=== PATIENT | male | born 1940 | race Caucasian/White ===

== ENCOUNTER 2018-02-04 13:00 | Inpatient (IN) ==
[2018-02-06] MEDS ORDERED: Mupirocin 2% Nasal Oint Topical Syringe EACH NARE SCH (06:15)
[2018-02-06] MEDS ORDERED: Chlorhexidine Gluconate 2% 1 Pack (2 Cloths) TOPICAL SCH (06:15)
[2018-02-06] MEDS ORDERED: Aspirin 325 MG Tablet PO SCH (06:15)
[2018-02-06] MEDS ORDERED: Heparin 10,000 UNITS/10 ML Vial (for IV use) ONE (06:26)
[2018-02-06] MEDS ORDERED: Protamine Sulfate Inj 50 MG/5 ML Vial ONE (06:26)
[2018-02-06] MEDS ORDERED: ceFAZolin 2 GM Premix Inj 2 GM/100 ML BAG IV.SIG SCH (07:00)
--- NOTE | 2018-02-06 08:22 | P.HPCA ---
History of Present Illness Service: Cardiology Primary Care Physician: Yemi Acosta MD Chief Complaint: Shortness of breath History of Present Illness: Is a very nice 68-year-old male with prior history of hypertension, hyperlipidemia, and aortic stenosis who presented to his primary care physician with symptoms of worsening dyspnea on exertion. Transthoracic echocardiogram confirmed severely reduced aortic valve area. Preoperative workup showed no significant underlying coronary disease. Patient was evaluated by cardiothoracic surgery and felt to be intermediate risk for traditional surgical valve. After discussion, the patient decided to proceed forward with consideration of transcatheter aortic valve replacement. Patient is here today for elective surgery. - Diagnosis (1) Severe aortic stenosis (2) Diastolic CHF Inpatient Certification: I certify that the inpatient services were ordered in accordance with Medicare regulations governing the order. This includes certification that hospital inpatient services are reasonable and necessary and in the case of services not specified as inpatient-only under 42 CFR 419.22(n), that they are appropriately provided as inpatient services in accordance to with the 2-midnight benchmark under 43 CFR 412.3(e) Review of Systems All other systems reviewed negative except as stated in HPI [facility] - Medical History Medical History: Medical History (Last Updated 02/06/18 @ 08:16 by Luis Alberto Barnes MD) Anemia Aortic stenosis, severe Carpal tunnel syndrome DVT (deep venous thrombosis) Depression Diabetes mellitus Diastolic CHF Hyperlipidemia Thrombocytopenia - Surgical History Surgical History: Surgical History (Last Updated 02/06/18 @ 08:16 by Luis Alberto Barnes MD) H/O shoulder surgery Joint replaced Post-splenectomy S/P IVC filter Medications and Allergies Active Medications: Active Medications Aspirin (Aspirin) 325 mg PO BIOSTATISTICS TEACHER REPLACED BY [facility] Stop: 02/09/18 06:10 Last Admin: 02/06/18 06:40 Dose: 325 mg Chlorhexidine Gluconate (Chlorhexidine 2% Cloth) 3 pack TOPICAL BIOSTATISTICS TEACHER REPLACED BY [facility] Stop: 02/09/18 06:10 Cefazolin/Sodium Chloride (Ancef 2 Gm Premix Inj) 2 gm in 100 mls @ 200 mls/hr IV.SIG ONCE REPLACED BY [facility] Stop: 02/06/18 18:00 Sodium Chloride (Ns Inj) 1,000 mls @ 125 mls/hr IV.CONT .Q8H REPLACED BY [facility] Mupirocin (Bactroban 2% Nasal Oint) 1 applicatio EACH NARE BIOSTATISTICS TEACHER REPLACED BY [facility] Stop: 02/09/18 06:10 Povidone Iodine (Betadine 5% Antisepsis Kit) 1 applicatio TOPICAL BIOSTATISTICS TEACHER [facility] Stop: 02/09/18 06:10 Allergies Allergy/AdvReac Type Severity Reaction Status Date / Time diazepam AdvReac Severe Confusion Unverified 01/21/17 20:45 haloperidol AdvReac Severe Confusion Unverified 01/21/17 20:45 lorazepam AdvReac Severe Confusion Unverified 01/21/17 20:45 *MDRO Multi-Drug Resistant AdvReac Unknown Uncoded 04/08/16 09:14 Organism Home Medications Medication Instructions Recorded Confirmed Type alprazolam 0.25 mg PO TID 02/06/18 02/06/18 History atorvastatin 10 mg PO DAILY 02/06/18 02/06/18 History cyanocobalamin (vitamin B-12) 1,000 mcg SUB-Q [id number] 02/06/18 02/06/18 History diphenhydramine HCl 50 mg PO HS 02/06/18 02/06/18 History enoxaparin [Lovenox] 100 mg SUB-Q DAILY 02/06/18 02/06/18 History ferrous sulfate [iron] 325 mg PO BID 02/06/18 02/06/18 History folic acid 1 mg PO DAILY 02/06/18 02/06/18 History furosemide 40 mg PO DAILY 02/06/18 02/06/18 History glipizide 5 mg PO BID 02/06/18 02/06/18 History hydrocodone-acetaminophen [Hooker] 1 tab PO Q4-6H 02/06/18 02/06/18 History oxybutynin chloride 10 mg PO DAILY 02/06/18 02/06/18 History oxycodone 10 mg PO Q12H 02/06/18 02/06/18 History pregabalin [Lyrica] 75 mg PO TID 02/06/18 02/06/18 History warfarin 7.5 mg PO DAILY 02/06/18 02/06/18 History Exam Vital signs: Vital Signs 02/06/18 06:39 Temperature 99.3 F Pulse Rate 69 Respiratory Rate 18 Blood Pressure 151/77 H Pulse Oximetry 93 L Intake & Output 02/05/18 02/06/18 02/06/18 18:59 06:59 18:59 Weight 105 kg Other: Weight On Admission 105 kg - Constitutional no acute distress - Routine HEENT Exam Head: Present: normocephalic Eye: Present: EOMI, PERRL ENT: Present: mucous membranes moist - Routine Neck Exam Absent: JVD - Routine Cardiovascular Exam Present: RRR, S1, S2, murmur - Routine Abdominal Exam Present: soft, normoactive bowel sounds - Routine Extremities Exam Present: cyanosis. Absent: edema - Routine Neurological Exam Present: oriented X3. Absent: sensory deficit, motor deficit Results Intake and Output 02/05/18 02/06/18 02/06/18 22:59 06:59 14:59 Other: Weight 105 kg Weight On Admission 105 kg EKG interpretations - Dysrhythmias Sinus rhythms and dysrhythmias: sinus rhythm Caprini VTE Risk Assessment Caprini VTE Risk Assessment: No/Low Risk (score <= 1) Caprini Risk Assessment Model: Point Value = 1 Point Value = 2 Point Value = 3 Point Value = 5 Age 41-60 Minor surgery BMI > 25 kg/m2 Swollen legs Varicose veins or History of unexplained or recurrent spontaneous Oral contraceptives or hormone replacement Sepsis (< 1 month) Serious lung disease, including pneumonia (< 1 month) Abnormal pulmonary function Acute myocardial infarction Congestive heart failure (< 1 month) History of inflammatory bowel disease Medical patient at bed rest Age 61-74 Arthroscopic surgery Major open surgery (> 45 min) Laparoscopic surgery (> 45 min) Malignancy Confined to bed (> 72 hours) Immobilizing plaster cast Central venous access Age >= 75 History of VTE Family history of VTE Factor V Leiden Prothrombin [id number] Lupus anticoagulant Anticardiolipin antibodies Elevated serum homocysteine Heparin-induced thrombocytopenia Other congenital or acquired thrombophilia Stroke (< 1 month) Elective arthroplasty Hip, pelvis, or leg fracture Acute spinal cord injury (< 1 month) Prophylaxis Regimen: Total Risk Factor Score Risk Level Prophylaxis Regimen 0-1 Low Early ambulation 2 Moderate Order ONE of the following: *Sequential Compression Device (SCD) *Heparin 5000 units SQ BID 3-4 Higher Order ONE of the following medications: *Heparin 5000 units SQ TID *Enoxaparin/Lovenox 40 mg SQ daily (WT < 150 kg, CrCl > 30 mL/min) *Enoxaparin/Lovenox 30 mg SQ daily (WT < 150 kg, CrCl > 10-29 mL/min) *Enoxaparin/Lovenox 30 mg SQ BID (WT < 150 kg, CrCl > 30 mL/min) AND/OR *Sequential Compression Device (SCD) 5 or more Highest Order ONE of the following medications: *Heparin 5000 units SQ TID (Preferred with Epidurals) *Enoxaparin/Lovenox 40 mg SQ daily (WT < 150 kg, CrCl > 30 mL/min) *Enoxaparin/Lovenox 30 mg SQ daily (WT < 150 kg, CrCl > 10-29 mL/min) *Enoxaparin/Lovenox 30 mg SQ BID (WT < 150 kg, CrCl > 30 mL/min) AND *Sequential Compression Device (SCD) Assessment and Plan - Assessment (1) Severe aortic stenosis Code(s): I35.0 - Nonrheumatic aortic (valve) stenosis Status: Acute (2) Diastolic CHF Code(s): I50.30 - Unspecified diastolic (congestive) heart failure Status: Acute - Plan Preoperative evaluation STS score 3.6% [place] Heart [employer] functional class III BMI 30.7 Frailty score 2 out of 4 Electrocardiogram normal sinus rhythm left ventricular hypertrophy with extensive STT wave changes secondary to hypertrophy. Pulmonary function test performed on January 07, 2018 shows an FEV1 of 2.14 consistent with mild restrictive disease Echocardiogram from November 05, 2017 shows a peak jet velocity of 6.0 m/s, mean gradient of 86 mmHg, calculated aortic valve area 0.57 cm, ejection fraction 60 -65%, mild to moderate aortic insufficiency, mild mitral regurgitation, mild tricuspid regurgitation Cardiac catheterization November 06, 2017 shows no significant coronary disease Computed tomography analysis on December 25, 2017 shows a short annulus diameter of 26.5 mm in a long anus diameter 33.3 mm with a calculated aortic annular area of 709.3 mm. The sinus of Valsalva diameter is 38.8 mm, sinotubular junction diameter 34.4 mm, left coronary height 15.7 mm, right coronary height 23.0 mm. Iliac arteries are widely patent with minimal luminal diameter 9.5 mm on the right and 9.2 mm on the left This is 77-year-old gentleman with history of deep vein thrombosis, diabetes, hyperlipidemia, hypertension, and progressive shortness of breath with symptomatic severe aortic valve stenosis and [place] Heart [employer] functional class III symptoms. Patient is felt to be intermediate risk for surgical aortic valve replacement. We will plan for transcatheter valve replacement with an Osorio S3 29 mm bioprosthetic valve. Respective alternatives has been discussed with the patient patient is agreeable to proceed.
[2018-02-06] MEDS ORDERED: Lidocaine 2% 100 MG/5 ML Syringe IV.PUSH ONE (08:50)
[2018-02-06] MEDS ORDERED: Neostigmine Inj 5 MG/5 ML Syringe IV.PUSH ONE (08:50)
[2018-02-06] MEDS ORDERED: Lidocaine PF 1% Inj 5 ML Syringe INFILTRATN ONE (08:50)
[2018-02-06] MEDS ORDERED: Phenylephrine/NS 1000 MCG/10ML Syringe IV.PUSH ONE (08:50)
[2018-02-06] MEDS ORDERED: Metoprolol Inj 5 MG/5 ML Vial IV.PUSH ONE (08:50)
[2018-02-06] MEDS ORDERED: Nitroglycerin Drip Premix 50 MG/250 ML BOTTLE IV.SIG ONE (08:50)
[2018-02-06] MEDS ORDERED: Glycopyrrolate Inj 1 MG/5 ML Syringe IV.PUSH ONE (08:50)
[2018-02-06] MEDS ORDERED: Iohexol 350 MG/ML 50 ML Vial (for Rad Diag) IVCONTRAST ONE (09:48)
[2018-02-06] MEDS ORDERED: Atropine Inj 1 MG/ML Vial IV.PUSH PRN (09:54)
[2018-02-06] MEDS ORDERED: Benzocaine/Menthol 15 MG/3.6 MG SF Lozenge BUCCAL PRN (09:54)
--- NOTE | 2018-02-06 09:54 | P.OP ---
- Preoperative Diagnosis (1) Severe aortic stenosis (2) Diastolic CHF - Postoperative Diagnosis (1) Severe aortic stenosis (2) Diastolic CHF Date of procedure: 02/06/18 Procedure: Transcatheter aortic valve replacement with a 29 Shyam 3 tissue valve Balloon aortic valvuloplasty with a 24 x 4 Osorio balloon Percutaneous bilateral femoral artery access with Perclose closure on the right. Percutaneous left femoral venous access Aortography Fluoroscopy Implants: 29 Shyam 3 tissue valve Anesthesia: GETA Surgeon: Alyssa Bowen MD co-surgeon - Dr. Barnes Adolescent Coordinator: Livan Bucio Adolescent Coordinator: Dr. Mil Odom Operation and Findings: The risks, benefits, complications, treatment options, and expected outcomes were discussed with the patient. The possibilities of reaction to medication, pulmonary aspiration, perforation of viscus, bleeding, recurrent infection, the need for additional procedures, failure to diagnose a condition, and creating a complication requiring transfusion or operation were discussed with the patient. The patient concurred with the proposed plan, giving informed consent. The site of surgery properly noted/marked. The patient was taken to hybrid operating room, identified as [place] and the procedure verified as Transcatheter Aortic Valve Replacement. A Time Out was held and the above information confirmed. Standard monitoring lines and Donahue catheter were placed. General anesthesia was induced. The patient was prepped and draped in a sterile fashion. Initially, left femoral arterial and venous access was acquired using a Seldinger percutaneous technique. The details of this procedure were dictated under separate note by cardiology. Once a pigtail was positioned in the aortic annulus and a temporary transvenous pacemaker wire was placed in the right ventricular apex and tested, the right femoral artery was accessed using a needle followed by a guidewire under fluoroscopic guidance. The patient was heparinized and 2 Perclose devices deployed for later closure. Serial dilators were used to dilate the right femoral artery to 16 Cambodian caliber. The Osorio sheath was then inserted up to the distal abdominal aorta. Arch aortography was performed to define the implant view. A balloon aortic valvuloplasty was then performed using a 24 x 4 balloon with the patient being paced at 180 beats per minute. A 29 Osorio Shyam 3 transcatheter aortic valve was then positioned in the annulus and deployed with the patient being paced at 180 beats per minute. Following deployment, the valve apparatus was withdrawn and arch aortography and LASHONDA were performed to assess the valve. The valve had no significant perivalvular leaks. Gradients were then measured and the sheath was removed. Perclose sutures were secured with good hemostasis. Protamine was administered. Sterile dressings were placed. At the end of the operation, all sponge, instruments, and needle counts were correct. The patient was transferred to the CVICU in stable condition. Findings: No PVL following deployment. The patient fibrillated with the wire in the LV and required defibrillation and temporary pacing. Implants: 29 S3 tissue valve Complications: none Disposition: to CVICU in stable condition
--- NOTE | 2018-02-06 09:55 | ECG ---
Date Performed: 02/06/2018 Time Performed: 06:17:36 PTAGE: 77 years EKG: Sinus rhythm . LVH with secondary repolarization abnormality Extensive ST-T changes are probably due to ventricula r hypertrophy Since the previous tracing, no significant change noted Abnormal ECG PREVIOUS TRACING : 12/25/2017 08.16 DOCTOR: Shahriar Villarreal Interpretating Date/Time 02/06/2018 09:51:33
[2018-02-06] MEDS ORDERED: Sod Chloride 0.9% Inj 1,000 ML IV.CONT SCH (10:00)
[2018-02-06] MEDS ORDERED: fentaNYL Citrate Inj 100 MCG/2 ML Ampul ONE (10:35)
[2018-02-06] MEDS: Clevidipine Inj 25 MG/50 ML VIAL IV.CONT PRN ×3 (10:35→20:09)
[2018-02-06] MEDS: Morphine Sulfate Inj 2 MG/ML Vial IV.PUSH PRN ×2 (10:46→22:33)
[2018-02-06] MEDS: Acetaminophen 325 MG Tablet PO PRN ×2 (11:33→18:28)
--- NOTE | 2018-02-06 11:49 | P.PCN ---
Date of procedure: 02/06/18 Pre-op diagnosis: severe aortic stenosis Post-op diagnosis: same Procedure: Procedure: Transesophageal Echocardiography Diagnosis: Severe aortic stenosis Indications: Perioperative planning for transcatheter aortic valve replacement Consent: Obtained Anesthesia: GETA Description of the Procedure: The patient was sedated and mechanically ventilated. The echo probe was inserted easily and without resistance. At the conclusion of the procedure, the echo probe was removed. Please see detailed echocardiogram report for formal findings. Preliminary Findings (not confirmed): Pre-procedure: 1) LV hypertrophy with preserved EF 2) normal right ventricular size and function 3) severe aortic stenosis 4) moderate to severe aortic regurgitation 5) trace to mild mitral regurgitation 6) no pericardial effusion 7) no evidence of intra-atrial shunting by color flow Doppler Post-procedure: 1) s/p successful placement of transcatheter aortic valve 2) no evidence of bioprosthetic valve stenosis 3) no perivalvular leak 4) no changes in mitral regurgitation 5) no pericardial effusion The patient tolerated the procedure well with no hemodynamic instability. There were no immediate complications noted. There was minimal EBL. I personally performed the procedure.
[2018-02-06] MEDS ORDERED: Sodium Phosphate Inj 30 MMOL in Sodium Chlor 0.9% Inj 250 ML IV.SIG PRN (12:03)
[2018-02-06] MEDS ORDERED: Potassium Phosphate 500 MG Soluble Tablet PO PRN ×2 (12:03)
[2018-02-06] MEDS ORDERED: Potassium Chlor 40 mEq Premix 40 MEQ/100 ML PIGGYBACK IV.SIG PRN ×2 (12:03)
[2018-02-06] MEDS ORDERED: Magnesium Sulfate Inj 4 GM in Sodium Chlor 0.9% Inj 92 ML IV.SIG PRN (12:03)
[2018-02-06] MEDS ORDERED: Magnesium Oxide 400 MG Tablet PO PRN (12:03)
[2018-02-06] MEDS ORDERED: Potassium Phosphate Inj 30 MMOL in Sodium Chlor 0.9% Inj 250 ML IV.SIG PRN (12:03)
[2018-02-06] MEDS ORDERED: Magnesium Sulfate Inj 2 GM in Sodium Chlor 0.9% Inj 96 ML IV.SIG PRN (12:03)
[2018-02-06] MEDS ORDERED: Potassium Chlor 20 mEq Premix 20 MEQ/100 ML PIGGYBACK IV.SIG PRN ×2 (12:03)
[2018-02-06] MEDS ORDERED: Potassium Chloride 25 MEQ Effervescent Tablet PO PRN (12:03)
--- NOTE | 2018-02-06 12:03 | P.CONCC ---
History of Present Illness Service: Critical Care Medicine Consult date: 02/06/18 Requesting Physician: Luis Alberto Barnes Reason for Consult: perioperative management of medical comorbidities Primary Care Provider: Yemi Acosta MD Chief Complaint: Shortness of breath History of Present Illness: 77yM with severe symptomatic aortic stenosis presents for transcatheter aortic valve replacement. His procedure was complicated by 1 episode of VF which lasted for approximately 10 seconds and required defibrillation. this happened during manipulation of the LV guidewire and appeared to be related to electrical R-on-T phenomenon. He also required intermittent pacing for bradycardia. The remainder of the procedure was uncomplicated. He arrives to the CVICU in stable condition, arousing from anesthesia. due to his somnolence, full ROS is unobtainable. limited ROS negative for chest pain, SOB, headache, n/ v, sore throat. family history reviewed and non-contributory to his acute illness. [facility] - Medical History Medical History: Medical History (Last Updated 02/06/18 @ 08:16 by Luis Alberto Barnes MD) Carpal tunnel syndrome DVT (deep venous thrombosis) Depression Diabetes mellitus Diastolic CHF Hyperlipidemia Thrombocytopenia - Surgical History Surgical History: Surgical History (Last Updated 02/06/18 @ 08:16 by Luis Alberto Barnes MD) H/O shoulder surgery Joint replaced Post-splenectomy S/P IVC filter Medications and Allergies Active Medications: Active Medications Acetaminophen (Tylenol) 650 mg PO Q4H PRN PRN Reason: PAIN SCALE 1 TO 2 Stop: 02/07/18 09:53 Last Admin: 02/06/18 11:33 Dose: 650 mg Aspirin (Aspirin) 325 mg PO [facility] [employer] [facility] Stop: 02/09/18 06:10 Last Admin: 02/06/18 06:40 Dose: 325 mg Aspirin (Aspirin Chew) 81 mg PO DAILY [facility] Atropine Sulfate (Atropine Inj) 0.5 mg IV.PUSH UNSCH PRN PRN Reason: VAGAL REPONSE Stop: 02/07/18 09:53 Benzocaine/Menthol (Cepacol Max Strength) 1 lozenge BUCCAL Q3H PRN PRN Reason: SORE THROAT Stop: 02/07/18 09:53 Chlorhexidine Gluconate (Chlorhexidine 2% Cloth) 3 pack TOPICAL PHOTOGRAPHER [facility] Stop: 02/09/18 06:10 Clopidogrel Bisulfate (Plavix) 75 mg PO DAILY [facility] Ferrous Sulfate (Ferosul) 325 mg PO [facility]ILY [facility] Furosemide (Lasix) 20 mg PO DAILY [facility] Cefazolin/Sodium Chloride (Ancef 2 Gm Premix Inj) 2 gm in 100 mls @ 200 mls/hr IV.SIG ONCE [facility] Stop: 02/06/18 18:00 Last Infusion: 02/06/18 11:41 Dose: Infused Sodium Chloride (Ns Inj) 1,000 mls @ 125 mls/hr IV.CONT .Q8H [facility] Sodium Chloride (Ns Inj) 1,000 mls @ 125 mls/hr IV.CONT .Q8H [facility] Stop: 02/06/18 13:59 Last Admin: 02/06/18 11:00 Dose: 125 mls/hr Morphine Sulfate (Morphine Inj) 2 mg IV.PUSH Q30M PRN PRN Reason: BREAKTHROUGH PAIN Last Admin: 02/06/18 10:46 Dose: 2 mg Mupirocin (Bactroban 2% Nasal Oint) 1 applicatio EACH NARE PHOTOGRAPHER [employer] [facility] Stop: 02/09/18 06:10 Ondansetron HCl (Zofran Inj) 4 mg IV.PUSH ONCE PRN PRN Reason: NAUSEA OR VOMITING Oxycodone/Acetaminophen (Percocet 5/325 Mg) 1 tab PO Q6H PRN PRN Reason: PAIN SCALE 3 TO 5 Povidone Iodine (Betadine 5% Antisepsis Kit) 1 applicatio TOPICAL PHOTOGRAPHER [facility] Stop: 02/09/18 06:10 Allergies Allergy/AdvReac Type Severity Reaction Status Date / Time diazepam AdvReac Severe Confusion Unverified 01/21/17 20:45 haloperidol AdvReac Severe Confusion Unverified 01/21/17 20:45 lorazepam AdvReac Severe Confusion Unverified 01/21/17 20:45 *MDRO Multi-Drug Resistant AdvReac Unknown Uncoded 04/08/16 09:14 Organism Home Medications Medication Instructions Recorded Confirmed Type alprazolam 0.25 mg PO TID 02/06/18 02/06/18 History atorvastatin 10 mg PO DAILY 02/06/18 02/06/18 History cyanocobalamin (vitamin B-12) 1,000 mcg SUB-Q [id number] 02/06/18 02/06/18 History diphenhydramine HCl 50 mg PO HS 02/06/18 02/06/18 History enoxaparin [Lovenox] 100 mg SUB-Q DAILY 02/06/18 02/06/18 History ferrous sulfate [iron] 325 mg PO BID 02/06/18 02/06/18 History folic acid 1 mg PO DAILY 02/06/18 02/06/18 History furosemide 40 mg PO DAILY 02/06/18 02/06/18 History glipizide 5 mg PO BID 02/06/18 02/06/18 History hydrocodone-acetaminophen [Hope] 1 tab PO Q4-6H 02/06/18 02/06/18 History oxybutynin chloride 10 mg PO DAILY 02/06/18 02/06/18 History oxycodone 10 mg PO Q12H 02/06/18 02/06/18 History pregabalin [Lyrica] 75 mg PO TID 02/06/18 02/06/18 History warfarin 7.5 mg PO DAILY 02/06/18 02/06/18 History Physical Exam Vital signs: Vital Signs 02/06/18 06:39 02/06/18 10:20 Temperature 37.4 C 36.4 C Pulse Rate 69 81 Respiratory Rate 18 20 Blood Pressure 151/77 H 179/99 H Pulse Oximetry 93 L 99 Intake & Output 02/05/18 02/06/18 02/06/18 18:59 06:59 18:59 Intake Total 1200 / 1200 Output Total 625 / 625 Balance 575 / 575 Weight 105 kg Intake: IV 100 / 100 Ancef 2 GM Premix Inj 2 gm In 100 / 100 100 ml @ 200 mls/hr IV.SIG ONCE [facility] Rx#:[id number] Anesthesia Amount 1100 / 1100 Output: Estimated Blood Loss 25 / 25 Urine Amount (Catheter) 600 / 600 Indwelling Temp Sensing 600 / 600 Catheter Other: Date of Last Bowel Movement 02/05/18 Weight On Admission 105 kg Narrative: GENERAL: Frail elderly male lying in bed, arousing from anesthesia HEENT: Normocephalic. Atraumatic. Pupils equal, round, reactive, conjugate. Mucous membranes are moist NECK: Trachea is midline. There is no JVD. right IJ introducer sheath with transvenous pacer in place, site is clean and dry, dressing intact. CHEST: unlabored. equal chest rise. nc o2. CARDIOVASCULAR: normal rate, regular rhythm. Transvenous pacer is set VVI at a backup rate of 50. Intermittently paced. ABDOMEN: Soft, nontender, nondistended. No guarding. MUSCULOSKELETAL: Pulses 2+. No peripheral edema. bilateral groin sites are clean and dry, no evidence of hematoma, dressing intact. distal LE pulses are Dopplerable. NEUROLOGICAL: RASS -2. Arousing from anesthesia. follows commands. moves all extremities. no focal deficits. - Urinary Catheter Management Indwelling Temp Sensing Catheter Cath placed during this visit: yes Reason for continuing: Hourly intake/output Insertion date: 02/06/18 Insertion time: 08:08 Assessment and Plan - Assessment and Plan Plan: Assessment: 77yM POD 0 s/p TAVR via groin access. EP consult. continue with transvenous pacer. close monitoring in an ICU setting. s/p TAVR 02/06 via groin access - anticoagulation per Dr. 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 - EP consult Congestive Heart Failure with preserved EF - mivf today. may require gentle diuresis in the coming days. Hyperlipidemia - restart home statin Diabetes - SSI Thrombocytopenia - stable. - trend on daily cbc advance diet after flat time SCDs Critical care will continue to follow while patient remains in the CVICU.
[2018-02-06 12:11] LABS: Baso # (Auto) 0.1 th/mm3 (0.0-0.2); Baso % (Auto) 1.3 % (0.0-2.0); Eos # (Auto) 0.2 th/mm3 (0.0-0.4); Eos % (Auto) 2.1 % (0.0-4.0); Hematocrit 30.4 % (39.0-51.0); Hemoglobin 10.1 gm/dL (13.0-17.0); Lymph % (Auto) 9.2 % (9.0-44.0); Mean Corpuscular HGB Conc 33.3 % (32.0-36.0); Mean Corpuscular Hemoglobin 32.8 pg (27.0-34.0); Mean Corpuscular Volume 98.6 fL (80.0-100.0); Mean Platelet Volume 7.7 fL (7.0-11.0); Mono # (Auto) 0.5 th/mm3 (0.0-0.9); Mono % (Auto) 4.9 % (0.0-8.0); Neut % (Auto) 82.5 % (16.0-70.0); Platelet Count 298 th/mm3 (150-450); Red Blood Count 3.09 mil/mm3 (4.50-5.90); Red Cell Distribution Width 16.1 % (11.6-17.2); White Blood Count 10.8 th/mm3 (4.0-11.0)
[2018-02-06 12:27] LABS: Activated Partial Thrombo Time 34.3 sec (24.3-30.1); INR 1.1 Ratio
[2018-02-06 12:30] LABS: Calcium 8.2 mg/dL (8.5-10.1); Carbon Dioxide 26.2 meq/L (21.0-32.0)
--- NOTE | 2018-02-06 13:30 | MA ---
cc: Luis Alberto Barnes MD DATE: 02/06/2018 PROCEDURE: Transcatheter aortic valve replacement. MOVIE EDITOR; Luis Alberto Barnes MD, [facility]. SECONDARY MANGLE OPERATOR GARMENTS: Dr. Russ Odom. PRIMARY CARDIOTHORACIC SURGEON: Dr. Alyssa Bowen. SECONDARY CARDIOTHORACIC SURGEON: Dr. Livan Bucio. PROCEDURES PERFORMED: 1. Fluoroscopy with interpretation. 2. Ascending aortography. 3. Transesophageal echocardiography. 4. Transvenous temporary pacemaker placement. 5. Direct current cardioversion with defibrillation. 6. Aortic valvuloplasty. 7. Transcatheter valve replacement with bioprosthetic valve, Osorio LISANDRO S3 29 mm. 8. Left heart catheterization. METHOD: Risks, benefits, and alternatives discussed with the patient. The patient understood and consented to the procedure. The patient was brought to the catheterization lab and positioned on the table. Bilateral groins were prepped and draped in sterile fashion. The left groin was anesthetized and a 6-Omani sheath was placed in the left femoral artery and a 5-Omani sheath in the left femoral vein. Next, the right common femoral artery was cannulated and an 8-Omani 11 cm sheath was placed without difficulty. TRANSESOPHAGEAL ECHOCARDIOGRAPHY: Please see separate detailed report. TEMPORARY TRANSVENOUS PACEMAKER PLACEMENT: A right internal jugular venous access was obtained and a 5-Omani balloon tipped temporary transvenous pacer was advanced to the right ventricular apex. Appropriate capture was confirmed. ASCENDING AORTOGRAPHY: Ascending aortography was performed with a 5-Omani pigtail catheter. Angiography visualized the leaflets and parallel well. No significant aortic root dilation. LEFT HEART CATHETERIZATION: A 5-Omani AL-1 catheter was advanced to ascending aorta. A 0.035-inch straight tip Amplatz wire was then navigated across the aortic valve with some difficulty. AL-1 catheter was advanced into the left ventricle. An exchange length J-wire was advanced to the left ventricular apex followed by a 5-Omani pigtail catheter to the apex; wire was removed. A [employer] Confida wire was advanced into the left ventricular apex and the pigtail catheter removed. At this point, due to some of the irritation secondary to the wire the patient developed ventricular fibrillation requiring a defibrillation back to sinus rhythm. AORTIC VALVULOPLASTY: A 23 mm aortic valvuloplasty balloon was advanced up and over the Confida wire and across the aortic valve. With a rapid pacing, the balloon was deployed. Repeat angiography showed severe aortic insufficiency. The patient tolerated fairly well hemodynamically. Aortic valvuloplasty was removed. The wire left in place. TRANSCATHETER AORTIC VALVE REPLACEMENT: A 29 mm Osorio bioprosthetic valve was then loaded on the wire. After the dilator removed the device was then advanced up and over the arch. The balloon pulled back into the stent and we navigated the arch carefully and placed the bioprosthetic valve across the alturas valve. Under direct visualization, angiography and appropriate placement was confirmed with rapid pacing. The device was then carefully deployed. Repeat transesophageal echocardiogram confirmed good placement without any aortic insufficiency. There is no evidence for any coronary obstruction or pericardial effusion. No significant mitral regurgitation. The 2 Perclose devices were successfully deployed in the right common femoral artery with good hemostasis, 2 VASCADE devices is in the left groin with good hemostasis. Heparin was administered throughout the entire procedure and maintained appropriate anticoagulation. Intraoperative post-deployment transesophageal echocardiogram results for transcatheter aortic valve: Aortic valve area of 1.43 cm2, mean gradient 7 mmHg, peak velocity 1.90 meters per second. No aortic insufficiency or perivalvular leak. CONCLUSIONS: 1. Successful transcatheter aortic valve replacement with 29 mm Osorio S3 bioprosthetic valve. 2. Ventricular fibrillation requiring defibrillation back to sinus rhythm. 3. Successful aortic valvuloplasty. PLAN: 1. The patient will be monitored closely for any postprocedural complications. The patient will be extubated and moved to the cardiovascular intensive care unit. Gentle hydration will be administered. 2. The patient was loaded with Plavix and will be administered aspirin. 3. On transition for discharge we will convert over to warfarin therapy secondary to history of deep vein thrombosis with IVC filter and no longer require Plavix. On discharge we will plan for aspirin and warfarin. INR goal between 2 and 3. MD JEFF Conrad/kimberly , 12:48 PM , 01:02 PM
[2018-02-06] MEDS: Sod Chloride 0.9% Inj 1,000 ML IV.CONT SCH ×3 (13:58→22:24)
[2018-02-06] MEDS: Pregabalin 75 MG Capsule PO SCH ×2 (15:05→20:34)
[2018-02-06] MEDS ORDERED: Iohexol 350 MG/ML 100 ML Vial (for Cath Lab) IVCONTRAST ONE (17:25)
--- NOTE | 2018-02-06 19:55 | MB ---
cc: Luna Goodwin MD DATE: 02/06/2018 REASON FOR CONSULTATION: Status post TAVR for possible conduction disease. HISTORY OF PRESENT ILLNESS: Mr. Gannon is a 77-year-old gentleman with history of high blood pressure, hyperlipidemia, aortic stenosis, shortness of breath on exertion, was admitted for transaortic valve replacement surgery. The procedure was successful. Post procedure I was asked for evaluation. The chart was reviewed. The patient was evaluated. ALLERGIES: 1. DIAZEPAM. 2. ALLOPURINOL. 3. LORAZEPAM. SOCIAL HISTORY: The gentleman currently denies smoking or drinking. FAMILY HISTORY: Noncontributory to his current medical condition. MEDICATIONS: 1. Acetaminophen. 2. Aspirin. 3. Lipitor 10 mg a day. 4. Ancef. 5. Plavix 75 mg a day. 6. Ferrous sulfate 325 mg a day. 7. Lasix 20 mg a day. 8. Magnesium. 9. Percocet. 10. Zofran. 11. Potassium 12. Coumadin as directed. REVIEW OF SYSTEMS: According to the patient. No chest pain, no chest discomfort, no vomiting, no fever. PHYSICAL EXAMINATION: GENERAL: Alert, fully oriented, pleasant, sitting in a chair. VITAL SIGNS: Blood pressure currently is 111/62, pulse 78, respiratory rate 18. LUNGS: Ventilated. CARDIOVASCULAR: S1, S2, regular. No gallop. No murmur. ABDOMEN: Soft. No mass. EXTREMITIES: Lower extremities, no edema. LABORATORY DATA: Jugular area with a central IV and a temporary pacemaker. Electrocardiogram shows sinus rhythm, diffuse ST changes. Hemoglobin 10.1, white blood cell 10.8, INR 1.1. Potassium 4.0, creatinine 1.14. ASSESSMENT AND RECOMMENDATIONS: Mr. Gannon is currently stable. There is no significant change in electrocardiogram post and pre procedure. The gentleman is very comfortable. There was no need for pacing. The gentleman referred some discomfort with the right jugular central line and the temporary pacer. At this point, there is no need to keep the temporary pacer. I am going to remove it. This gentleman can be observed, can be discharged home whenever it is okay with the managing team. I will be available on a p.r.n. basis. Luna Goodwin MD HS/ct , 04:48 PM , 04:55 PM
[2018-02-07] MEDS: Clevidipine Inj 25 MG/50 ML VIAL IV.CONT PRN (02:32)
[2018-02-07 06:00] LABS: Hematocrit 29.9 % (39.0-51.0); Mean Corpuscular HGB Conc 33.4 % (32.0-36.0); Mean Corpuscular Hemoglobin 32.9 pg (27.0-34.0); Mean Corpuscular Volume 98.4 fL (80.0-100.0); Platelet Count 266 th/mm3 (150-450); Red Blood Count 3.03 mil/mm3 (4.50-5.90); White Blood Count 14.6 th/mm3 (4.0-11.0)
[2018-02-07 06:45] LABS: Albumin 3.1 g/dL (3.4-5.0); Anion Gap 10 meq/L (5-15); Aspartate Aminotransferase 64 U/L (15-37); Calcium 8.2 mg/dL (8.5-10.1); Chloride 104 meq/L (98-107); Glomerular Filtration Rate 61 mL/min (>89); Glucose,Random 157 mg/dL (74-106); Sodium 141 meq/L (136-145)
[2018-02-07 06:55] LABS: Alanine Aminotransferase 49 U/L (12-78); Alkaline Phosphatase 122 U/L (45-117); Blood Urea Nitrogen 12 mg/dL (7-18); Total Protein 6.7 g/dL (6.4-8.2)
[2018-02-07] MEDS: Sod Chloride 0.9% Inj 1,000 ML IV.CONT SCH (07:21)
[2018-02-07] MEDS ORDERED: Dextrose 50% in Water 50 ML Vial IV.PUSH PRN (07:24)
--- NOTE | 2018-02-07 07:27 | P.PNCC ---
Subjective Subjective Remarks/Hospital Course: 77yM with severe symptomatic aortic stenosis presents for transcatheter aortic valve replacement. His procedure was complicated by 1 episode of VF which lasted for approximately 10 seconds and required defibrillation. this happened during manipulation of the LV guidewire and appeared to be related to electrical R-on-T phenomenon. He also required intermittent pacing for bradycardia. The remainder of the procedure was uncomplicated. He arrives to the CVICU in stable condition, arousing from anesthesia. due to his somnolence, full ROS is unobtainable. limited ROS negative for chest pain, SOB, headache, n/ v, sore throat. family history reviewed and non-contributory to his acute illness. Subjective 02/07: Afebrile. Currently on clevidipine gtt to maintain systolic blood pressure less than 140. Urinary retention overnight requiring straight catheterization. The patient is on chronic benzodiazepines and narcotics and takes diphenhydramine at night?. Resuming prostate medications. Temporary pacemaker removed per EP cardiology Objective Vital Signs / I&O: Vital Signs 02/06/18 10:20 02/06/18 12:00 02/06/18 15:00 Temperature 97.6 F 98.2 F 98.3 F Pulse Rate 81 71 80 Respiratory Rate 20 20 20 Blood Pressure 179/99 H 136/60 135/69 Pulse Oximetry 99 99 99 02/06/18 19:00 02/06/18 19:30 02/06/18 20:00 Temperature 98.2 F Pulse Rate 80 78 Respiratory Rate 18 18 18 Blood Pressure 146/41 H Pulse Oximetry 02/06/18 23:00 02/07/18 02:00 02/07/18 03:30 Temperature 97.9 F Pulse Rate 61 65 Respiratory Rate 18 18 Blood Pressure 151/41 H Pulse Oximetry 02/07/18 04:00 02/07/18 06:50 Temperature 98.6 F Pulse Rate 73 Respiratory Rate 18 18 Blood Pressure 149/41 H Pulse Oximetry Intake & Output 02/06/18 02/07/18 02/07/18 18:59 06:59 18:59 Intake Total 2720 / 2720 1060 / 1060 Output Total 1300 / 1300 1100 / 1100 Balance 1420 / 1420 -40 / -40 Intake: IV 700 / 700 100 / 100 Cleviprex Inj 25 mg In 50 ml @ 100 / 100 100 / 100 1 MG/HR 2 mls/hr IV.CONT TITRATE PRN Rx#:[id number] NS Inj 1,000 ML @ 125 mls/hr IV 500 / 500 .CONT .Q8H ARIAN Rx#:[id number] Ancef 2 GM Premix Inj 2 gm In 100 / 100 100 ml @ 200 mls/hr IV.SIG ONCE ARIAN Rx#:[id number] Oral 920 / 920 960 / 960 Anesthesia Amount 1100 / 1100 Output: Estimated Blood Loss 25 / 25 Urine Amount (Catheter) 1275 / 1275 1100 / 1100 Indwelling Temp Sensing 1275 / 1275 Catheter Straight 1100 / 1100 Other: Date of Last Bowel Movement 02/05/18 # Bowel Movements 0 Result Diagrams: 02/07/18 05:25 02/07/18 05:25 Objective Remarks: GENERAL: 77-year-old male resting in bed in no acute distress SKIN: Warm and dry. No rash HEAD: Atraumatic. Normocephalic. EYES: Pupils equal and round around 3 mm bilaterally and reactive. No scleral icterus. No injection or drainage. ENT: No nasal bleeding or discharge. Mucous membranes pink and moist. NECK: Trachea midline. No JVD. Right IJ cordis with minimal blood. CARDIOVASCULAR: Regular rate and rhythm. S1, S2 no S4. RESPIRATORY: No accessory muscle use. Clear to auscultation. Breath sounds equal bilaterally. GASTROINTESTINAL: Abdomen soft, non-tender, nondistended. Hepatic and splenic margins not palpable. MUSCULOSKELETAL: Extremities without significant peripheral edema. No obvious deformities. NEUROLOGICAL: Awake and alert. No obvious cranial nerve deficits. Motor grossly within normal limits. Five out of 5 muscle strength in the arms and legs. Normal speech. PSYCHIATRIC: Appropriate mood and affect; insight and judgment normal. Assessment and Plan - Assessment and Plan Plan: Assessment: 77yM POD 0 s/p TAVR via groin access. EP consult. continue with transvenous pacer. close monitoring in an ICU setting. s/p TAVR 02/06 via groin access - anticoagulation per Dr. Barnes. Currently on warfarin 3.5 mg daily. INR this a.m. pending. 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 - EP consult recommended discontinuation of pacemaker. Chronic diastolic congestive Heart Failure with preserved EF - mivf today. may require gentle diuresis in the coming days. Chronically on furosemide 40 mg daily Hyperlipidemia - restart home statin/atorvastatin 10 mg daily Diabetes - SSI with insulin aspart initiated before meals at bedtime. Normally on glipizide 5 mg twice daily Leukocytosis/normocytic anemia - stable. - trend on daily cbc -Resume ferrous sulfate 325 mg daily. On twice daily at home. Hypoalbuminemia -Currently in cardiac diet Chronic benzodiazepine/opiate use -Previously on alprazolam 0.2 mg 3 times daily and Percocet/oxycodone at home. Urinary retention -Continue oxybutynin 10 mg daily/home medication. Straight cath as needed SCDs Critical care will continue to follow while patient remains in the CVICU.
[2018-02-07 08:48] LABS: Prothrombin Time 10.2 sec (9.8-11.6)
[2018-02-07] MEDS: Pregabalin 75 MG Capsule PO SCH ×2 (08:52→12:56)
[2018-02-07] MEDS: Insulin NovoLOG Aspart Correctional Sugar Inj SQ SCH ×2 (08:55→11:52)
[2018-02-07] MEDS ORDERED: Ferrous Sulfate 325 MG Tablet PO SCH (09:00)
[2018-02-07] MEDS ORDERED: Furosemide 40 MG Tablet PO SCH (09:00)
[2018-02-07] MEDS ORDERED: Lisinopril 5 MG Tablet PO SCH (09:00)
[2018-02-07] MEDS ORDERED: Folic Acid 1 MG Tablet PO SCH (09:00)
--- NOTE | 2018-02-07 09:33 | P.DS ---
Date of admission: 02/06/18 05:54 Primary care physician: Yemi Acosta MD Attending physician on discharge: Livan Bucio Anticipated date of discharge: 02/07/18 Brief History from admission: Is a very nice 68-year-old male with prior history of hypertension, hyperlipidemia, and aortic stenosis who presented to his primary care physician with symptoms of worsening dyspnea on exertion. Transthoracic echocardiogram confirmed severely reduced aortic valve area. Preoperative workup showed no significant underlying coronary disease. Patient was evaluated by cardiothoracic surgery and felt to be intermediate risk for traditional surgical valve. After discussion, the patient decided to proceed forward with consideration of transcatheter aortic valve replacement. Patient is here today for elective surgery. Patient update on day of discharge: Doing well Hemodynamically and electrically stable Voiding better this am DS: Diagnosis - Discharge Diagnosis (1) Severe aortic stenosis Status: Acute (2) Diastolic CHF Status: Acute DS: Summary Hospital Course: 02/06 Transcatheter aortic valve replacement with a 29 Shyam 3 tissue valve Balloon aortic valvuloplasty with a 24 x 4 Osorio balloon Percutaneous bilateral femoral artery access with Perclose closure on the right. Percutaneous left femoral venous access Aortography Fluoroscopy - Time Spent with Patient Total time spent providing and/or coordinating discharge services: Greater than 30 minutes Exam Vital signs: Vital Signs 02/06/18 10:20 02/06/18 12:00 02/06/18 15:00 Temperature 97.6 F 98.2 F 98.3 F Pulse Rate 81 71 80 Respiratory Rate 20 20 20 Blood Pressure 179/99 H 136/60 135/69 Pulse Oximetry 99 99 99 02/06/18 19:00 02/06/18 19:30 02/06/18 20:00 Temperature 98.2 F Pulse Rate 80 78 Respiratory Rate 18 18 18 Blood Pressure 146/41 H Pulse Oximetry 02/06/18 23:00 02/07/18 02:00 02/07/18 03:30 Temperature 97.9 F Pulse Rate 61 65 Respiratory Rate 18 18 Blood Pressure 151/41 H Pulse Oximetry 02/07/18 04:00 02/07/18 06:50 02/07/18 07:00 Temperature 98.6 F 98.2 F Pulse Rate 73 75 Respiratory Rate 18 18 18 Blood Pressure 149/41 H 131/60 Pulse Oximetry Intake & Output 02/06/18 02/07/18 02/07/18 18:59 06:59 18:59 Intake Total 2720 / 2720 1060 / 1060 Output Total 1300 / 1300 1100 / 1100 Balance 1420 / 1420 -40 / -40 Intake: IV 700 / 700 100 / 100 Cleviprex Inj 25 mg In 50 ml @ 100 / 100 100 / 100 1 MG/HR 2 mls/hr IV.CONT TITRATE PRN Rx#:[id number] NS Inj 1,000 ML @ 125 mls/hr IV 500 / 500 .CONT .Q8H ARIAN Rx#:[id number] Ancef 2 GM Premix Inj 2 gm In 100 / 100 100 ml @ 200 mls/hr IV.SIG ONCE ARIAN Rx#:[id number] Oral 920 / 920 960 / 960 Anesthesia Amount 1100 / 1100 Output: Estimated Blood Loss 25 / 25 Urine Amount (Catheter) 1275 / 1275 1100 / 1100 Indwelling Temp Sensing 1275 / 1275 Catheter Straight 1100 / 1100 Other: Date of Last Bowel Movement 02/05/18 # Bowel Movements 0 - Constitutional no acute distress - Routine HEENT Exam Head: Present: normocephalic, atraumatic - Routine Chest/Breast/Axilla Exam Chest wall: Absent: tenderness - Routine Respiratory Exam Present: CTA bilaterally - Routine Cardiovascular Exam Present: RRR, S1, S2. Absent: murmur, gallop, rubs - Routine Abdominal Exam Present: soft, normoactive bowel sounds. Absent: tenderness, distended - Routine Extremities Exam Absent: cyanosis, clubbing, edema - Routine Skin Exam Present: intact. Absent: cyanosis, erythema - Routine Neurological Exam Present: alert, oriented X3, CN II-XII intact Results Procedures completed during hospitalization: Transcatheter aortic valve replacement with a 29 Shyam 3 tissue valve Balloon aortic valvuloplasty with a 24 x 4 Osorio balloon Percutaneous bilateral femoral artery access with Perclose closure on the right. Percutaneous left femoral venous access Aortography Fluoroscopy Labs on day of discharge: Labs from last 24 hours 02/07/18 02/07/18 02/07/18 08:05 08:04 05:25 WBC RBC Hgb Hct MCV MCH MCHC RDW Plt Count MPV Neut % (Auto) Lymph % (Auto) [place] % (Auto) Eos % (Auto) Baso % (Auto) Neut # (Auto) Lymph # (Auto) [place] # (Auto) Eos # (Auto) Baso # (Auto) WBC Differential Differential Comment PT 10.2 INR 1.0 APTT Sodium 141 Potassium 4.0 Chloride 104 Carbon Dioxide 27.0 Anion Gap 10 BUN 12 Creatinine 1.15 Estimated GFR 61 L POC Glucose 182 H Random Glucose 157 H Calcium 8.2 L Total Bilirubin 0.4 AST 64 H ALT 49 Alkaline Phosphatase 122 H Total Protein 6.7 Albumin 3.1 L Blood Type Antibody Screen MTS Gel Crossmatch 02/07/18 02/06/18 02/06/18 05:25 11:59 11:59 WBC 14.6 H 10.8 RBC 3.03 L 3.09 L Hgb 10.0 L 10.1 L Hct 29.9 L 30.4 L MCV 98.4 98.6 MCH 32.9 32.8 MCHC 33.4 33.3 RDW 16.0 16.1 Plt Count 266 298 MPV 8.0 7.7 Neut % (Auto) 82.5 H Lymph % (Auto) 9.2 [place] % (Auto) 4.9 Eos % (Auto) 2.1 Baso % (Auto) 1.3 Neut # (Auto) 9.0 H Lymph # (Auto) 1.0 [place] # (Auto) 0.5 Eos # (Auto) 0.2 Baso # (Auto) 0.1 WBC Differential . Differential Comment Auto diff final PT INR APTT Sodium 141 Potassium 4.0 Chloride 107 Carbon Dioxide 26.2 Anion Gap 8 BUN 14 Creatinine 1.14 Estimated GFR 62 L POC Glucose Random Glucose 133 H Calcium 8.2 L Total Bilirubin AST ALT Alkaline Phosphatase Total Protein Albumin Blood Type Antibody Screen MTS Gel Crossmatch 02/06/18 02/06/18 11:59 06:25 WBC RBC Hgb Hct MCV MCH MCHC RDW Plt Count MPV Neut % (Auto) Lymph % (Auto) [place] % (Auto) Eos % (Auto) Baso % (Auto) Neut # (Auto) Lymph # (Auto) [place] # (Auto) Eos # (Auto) Baso # (Auto) WBC Differential Differential Comment PT 11.0 INR 1.1 APTT 34.3 H Sodium Potassium Chloride Carbon Dioxide Anion Gap BUN Creatinine Estimated GFR POC Glucose Random Glucose Calcium Total Bilirubin AST ALT Alkaline Phosphatase Total Protein Albumin Blood Type B Positive Antibody Screen Negative MTS Gel Crossmatch See Detail Discharge Plan - Discharge Disposition Patient Disposition: Disch W/Home Health Service - Discharge Condition Condition: Good - Discharge Order Discharge Orders: Discharge Order (Routine); Ordered 02/07/18 Ordered By: Livan Bucio - Discharge Details Anticipated Discharge Date: 02/07/18 - Physicians Team Primary Care Provider: Yemi Acosta Attending Provider: Luis Alberto Barnes Other Providers: Chet Weinberg MD ; Luna Goodwin MD - Rxs /Orders / Referrals /Forms Prescriptions: New aspirin 81 mg Tablet,Chewable 81 mg PO DAILY RF: 0 lisinopril 5 mg Tablet 5 mg PO DAILY RF: 0 Continue alprazolam 0.25 mg Tablet 0.25 mg PO TID atorvastatin 10 mg Tablet 10 mg PO DAILY cyanocobalamin (vitamin B-12) 1,000 mcg/mL Solution 1,000 mcg SUB-Q [id number] diphenhydramine HCl 50 mg Capsule 50 mg PO HS ferrous sulfate [iron] 325 mg (65 mg iron) Tablet 325 mg PO BID folic acid 1 mg Tablet 1 mg PO DAILY furosemide 40 mg Tablet 40 mg PO DAILY glipizide 5 mg Tablet 5 mg PO BID hydrocodone-acetaminophen [Converse] 7.5-325 mg Tablet 1 tab PO Q4-6H oxybutynin chloride 10 mg Tablet Extended Release 24hr 10 mg PO DAILY oxycodone 10 mg Tablet,Oral Only,Ext.Rel.12 Hr 10 mg PO Q12H pregabalin [Lyrica] 75 mg Capsule 75 mg PO TID warfarin 7.5 mg Tablet 7.5 mg PO DAILY Discontinued enoxaparin [Lovenox] 100 mg/mL Syringe 100 mg SUB-Q DAILY Referrals: Yemi Acosta MD [Primary Care Provider] - See Instructions - Discharge Instructions Patient Printed Instructions: Transcatheter Aortic Valve Replacement (DC) Additional Instructions: 30 DAY TAVR ECHOCARDIOGRAM [facility] OFFICE WILL CALL WITH APPOINTMENT 30-day TAVR FOLLOW UP Dr. Barnes [phone] [facility] Cardiology [facility] Luiza Olivas [address] [address] 03/05/18 210PM 1 YEAR TAVR ECHOCARDIOGRAM [facility] OFFICE WILL CALL WITH APPOINTMENT [address] FOLLOW UP [address]. Barnes [phone] [facility] Cardiology [facility] Luiza Olivas [address] [address] 03/04/19 110PM
--- NOTE | 2018-02-07 16:38 | ECG ---
Date Performed: 02/06/2018 Time Performed: 11:20:00 PTAGE: 77 years EKG: Sinus rhythm Prolonged QT interval Possible left ventricular hypertrophy Extensive ST-T changes may be due to hyp ertrophy and/or ischemia Abnormal ECG Since PREVIOUS TRACING , no significant change noted PREVIOUS TRACIN02/06/2018 06.17.36 DOCTOR: Abel Herrera Interpretating Date/Time 02/07/2018 16:37:08
--- NOTE | 2018-02-07 16:38 | ECG ---
Date Performed: 02/07/2018 Time Performed: 05:29:08 PTAGE: 77 years EKG: Sinus rhythm LVH with secondary repolarization abnormality Extensive ST-T changes may be due to hypertrophy and/o r ischemia Abnormal ECG Since PREVIOUS TRACING , no significant change noted PREVIOUS TRACIN02/06/2018 11.20 DOCTOR: Abel Herrera Interpretating Date/Time 02/07/2018 16:37:26
--- NOTE | 2018-02-07 16:45 | ECHRPT ---
Indication: Heart Failure CONCLUSIONS The left ventricular systolic function is normal with an estimated ejection fraction in the range of 55-60%. Status-post percutaneous aortic valve replacement. Aortic valve area is 2.4 cm. Aortic valve mean gradient is 14 mmHg. BP: / HR: Rhythm: MEASUREMENTS (Male / Female) Normal Values Technical Quality:Fair 2D ECHO LVOT Diameter 2.2 cm DOPPLER AV Peak Velocity 278.7 cm/s AV Peak Gradient 31.1 mmHg AV Mean Gradient 14.0 mmHg AV Velocity Time Integral 50.4 cm LVOT Peak Velocity 151.5 cm/s LVOT Peak Gradient 9.2 mmHg LVOT Velocity Time Integral 31.6 cm AV Area Cont Eq vti 2.4 cm AV Area Cont Eq pk 2.1 cm FINDINGS LEFT VENTRICLE The left ventricular systolic function is normal with an estimated ejection fraction in the range of 55-60%. AORTIC VALVE Status-post percutaneous aortic valve replacement. Aortic valve area is 2.4 cm. Aortic valve mean gradient is 14 mmHg. Moose Araujo MD, FACC, FSCAI (Electronically Signed) Final Date:07 February 2018 16:45
== END 2018-02-07 17:16 | disposition home or self-care (01) ==
LOC: HDIC 02-06 05:54 → HCVI 02-06 10:26
PROVIDERS: ADMIT Internal Medicine; ATTEND Internal Medicine
PROC: TAVRHYB (ICD-10-PCS; 2018-02-06 08:00)